=== PATIENT | female | born 1940 | race Caucasian/White ===

== ENCOUNTER 2017-01-02 14:15 | Inpatient (IN) | payer MEDICARE, MEDICAID ==
[~2017-01-02] VITALS: Ht 152.4 cm; Wt 71.7 kg
[~2017-01-02 14:15] MED LIST: AMLO10TA80 PO; LOSA-20 PO; MULT-348 PO; OMEG1CAP17 PO; PRAV80TA21 PO; THEO200T17 PO; VALS1TAB30 PO
[2017-01-02] MEDS ORDERED: ASPIRIN 81MG TABLET PO STA (15:10)
[2017-01-02] MEDS ORDERED: LEVOFLOXACIN 750MG PREMIX 150 ML IV ONE (15:15)
[2017-01-02] MEDS ORDERED: SODIUM CHLORIDE 0.9% 1000ML BAG (SEPSIS BOLUS) IV ONE (15:15)
[2017-01-02 15:46] LABS: BASOPHILS % 1.1 % (0.0-2.0); EOSINOPHILS % 6.7 % (0.0-5.0); HEMATOCRIT. 38.6 % (36.0-48.0); HEMOGLOBIN. 12.5 g/dL (12.0-16.0); LYMPHOCYTES % 39.1 % (20.0-50.0); MEAN CORPUSCULAR VOLUME 86.4 fL (81.0-99.0); MEAN PLATELET VOLUME 8.7 fl (7.4-10.4); MONOCYTES % 13.1 % (2.0-8.0); PLATELET 360 x1000/uL (130-400); RED BLOOD CELL COUNT 4.46 mill/uL (4.2-5.4); RED CELL DISTRIBUTION WIDTH 17.4 % (11.6-14.6)
[2017-01-02 15:47] LABS: CHLORIDE 113 mEq/L (98-107); PARTIAL THROMBOPLASTIN TIME 27.6 sec (23.4-31.0); PROTHROMBIN TIME 10.7 sec (9.4-11.6)
[2017-01-02 15:53] LABS: CARBON DIOXIDE 21 mEq/L (21-32)
[2017-01-02 15:55] LABS: TROPONIN I < 0.02 ng/mL (0.00-0.04)
[2017-01-02 16:33] LABS: CLARITY URINE CLEAR (CLEAR); COLOR URINE YELLOW (YELLOW); GLUCOSE URINE NEGATIVE (NEGATIVE); KETONES URINE NEGATIVE (NEGATIVE); LEUKOCYTE ESTERASE URINE NEGATIVE (NEGATIVE); NITRITE URINE NEGATIVE (NEGATIVE); OCCULT BLOOD URINE NEGATIVE (NEGATIVE); PROTEIN URINE TRACE (NEGATIVE); SPECIFIC GRAVITY URINE 1.013 (1.005-1.030); UROBILINOGEN URINE 0.2 E.U./dL (0.2-1.0)
[2017-01-02 19:44] VITALS: BP 148/65
[2017-01-02 20:00] VITALS: BP 148/65
[2017-01-02] MEDS ORDERED: MAGNESIUM/ALUMINUM HYDROXIDE/SIMETHICONE 30ML UDC PO PRN (20:00)
[2017-01-02] MEDS ORDERED: CLONIDINE 0.1MG TABLET PO PRN (20:00)
[2017-01-02] MEDS ORDERED: ENOXAPARIN 40MG/0.4ML SYR SUBCUT SCH (20:00)
[2017-01-02] MEDS ORDERED: SODIUM CHLORIDE 0.9% 1,000 ML IV SCH (20:30)
[2017-01-02] MEDS: ENOXAPARIN 30MG/0.3ML SYR SUBCUT SCH (21:39)
[2017-01-02] MEDS: IPRATROPIUM/ALBUTEROL 0.5-3(2.5)MG/3ML NEB INH PRN (22:04)
[2017-01-02] MEDS: CEFTRIAXONE 1 G PREMIX 50 ML IV SCH (23:04)
[2017-01-03] VITALS: BP 132/43
[2017-01-03 00:52] LABS: CARBON DIOXIDE 15 mEq/L (21-32); CHLORIDE 124 mEq/L (98-107); CREATINE KINASE 73 IU/L (26-192); CREATINE KINASE MB FRACTION 0.8 ng/mL (0.5-3.6); TROPONIN I < 0.02 ng/mL (0.00-0.04)
[2017-01-03] MEDS: IPRATROPIUM/ALBUTEROL 0.5-3(2.5)MG/3ML NEB INH PRN ×3 (00:55→07:33)
[2017-01-03 02:17] LABS: CLARITY URINE CLEAR (CLEAR); COLOR URINE YELLOW (YELLOW); GLUCOSE URINE NEGATIVE (NEGATIVE); KETONES URINE NEGATIVE (NEGATIVE); LEUKOCYTE ESTERASE URINE TRACE (NEGATIVE); NITRITE URINE NEGATIVE (NEGATIVE); OCCULT BLOOD URINE NEGATIVE (NEGATIVE); PROTEIN URINE TRACE (NEGATIVE); SPECIFIC GRAVITY URINE 1.012 (1.005-1.030); UROBILINOGEN URINE 0.2 E.U./dL (0.2-1.0)
[2017-01-03 02:38] LABS: *AMPHETAMINES SCREEN URINE NEGATIVE (NEGATIVE); *BARBITURATES SCREEN URINE NEGATIVE (NEGATIVE); *BENZODIAZEPINES SCREEN URINE NEGATIVE (NEGATIVE); *COCAINE SCREEN URINE NEGATIVE (NEGATIVE); CANNABINOID URINE SCREEN NEGATIVE (NEGATIVE); METHADONE URINE SCREEN NEGATIVE (NEGATIVE); OPIATES URINE SCREEN NEGATIVE (NEGATIVE); PHENCYCLIDINE URINE SCREEN NEGATIVE (NEGATIVE)
[2017-01-03 04:00] VITALS: BP 130/67
[2017-01-03] MEDS ORDERED: LORAZEPAM 2MG/ML CPJ IV PRN (06:15)
[2017-01-03] MEDS ORDERED: POTASSIUM CHLORIDE 20MEQ TABLET SR PO SCH ×2 (06:30→10:30)
[2017-01-03 06:39] LABS: BASOPHILS % 0.8 % (0.0-2.0); EOSINOPHILS % 5.1 % (0.0-5.0); HEMATOCRIT. 37.5 % (36.0-48.0); HEMOGLOBIN. 12.5 g/dL (12.0-16.0); LYMPHOCYTES % 40.5 % (20.0-50.0); MEAN CORPUSCULAR HEMOGLOBIN 28.8 pg (28.0-32.0); MEAN CORPUSCULAR VOLUME 86.3 fL (81.0-99.0); MEAN PLATELET VOLUME 8.6 fl (7.4-10.4); NEUTROPHILS % 40.6 % (40.0-76.0); PLATELET 362 x1000/uL (130-400); RED BLOOD CELL COUNT 4.35 mill/uL (4.2-5.4); RED CELL DISTRIBUTION WIDTH 17.7 % (11.6-14.6)
[2017-01-03 07:39] LABS: CREATINE KINASE 112 IU/L (26-192); HDL CHOLESTEROL 27 mg/dL (40-59); LDL CHOLESTEROL 135 mg/dL (5-100)
[2017-01-03 07:46] LABS: CREATINE KINASE MB FRACTION 0.9 ng/mL (0.5-3.6); TROPONIN I < 0.02 ng/mL (0.00-0.04)
[2017-01-03 08:00] VITALS: BP 131/58
[2017-01-03 12:00] VITALS: BP 137/65
[2017-01-03] MEDS ORDERED: IPRATROPIUM/ALBUTEROL 0.5-3(2.5)MG/3ML NEB HHN PRN (13:00)
[2017-01-03] MEDS: IPRATROPIUM/ALBUTEROL 0.5-3(2.5)MG/3ML NEB HHN SCH ×2 (15:15→20:18)
[2017-01-03 16:00] VITALS: BP 145/65
[2017-01-03 20:00] VITALS: BP 115/67
[2017-01-03] MEDS: ENOXAPARIN 30MG/0.3ML SYR SUBCUT SCH (20:30)
[2017-01-03] MEDS ORDERED: CALCIUM CHLORIDE 1,000 MG in DEXT 5% WATER 90 ML IV NR (21:30)
[2017-01-04] VITALS: BP 146/68
[2017-01-04] MEDS: IPRATROPIUM/ALBUTEROL 0.5-3(2.5)MG/3ML NEB HHN SCH ×6 (00:19→21:05)
[2017-01-04] MEDS: CEFTRIAXONE 1 G PREMIX 50 ML IV SCH ×2 (00:57→22:25)
[2017-01-04] MEDS: ACETAMINOPHEN 325MG TABLET PO PRN ×2 (01:32→21:23)
[2017-01-04 04:00] VITALS: BP 130/62
[2017-01-04 08:00] VITALS: BP 115/50
[2017-01-04 12:25] VITALS: BP 112/61
[2017-01-04] MEDS ORDERED: LIDOCAINE HCL 1% 20ML VIAL (Pyxis) INJ ONE (12:30)
[2017-01-04] MEDS ORDERED: SODIUM BICARBONATE 4% (2.4MEQ) 5ML VIAL IV ONE (12:31)
[2017-01-04] MEDS: HYDROCODONE/ACETAMINOPHEN 5/325MG TABLET PO PRN (14:01)
[2017-01-04] MEDS: ONDANSETRON HCL 4MG/2ML VIAL IV PRN (15:37)
[2017-01-04 16:02] VITALS: BP 101/47
[2017-01-04 20:00] VITALS: BP 122/58
[2017-01-05] VITALS: BP 125/61
[2017-01-05] MEDS: IPRATROPIUM/ALBUTEROL 0.5-3(2.5)MG/3ML NEB HHN SCH ×7 (00:20→20:02)
[2017-01-05 04:00] VITALS: BP 108/51
[2017-01-05] MEDS: ACETAMINOPHEN 325MG TABLET PO PRN (04:45)
[2017-01-05 07:35] VITALS: BP 109/40
[2017-01-05 11:55] VITALS: BP 130/62
[2017-01-05] MEDS: HYDROCODONE/ACETAMINOPHEN 5/325MG TABLET PO PRN ×2 (14:01→20:25)
[2017-01-05 16:07] VITALS: BP 120/49
[2017-01-05 20:00] VITALS: BP 144/57
[2017-01-05] MEDS: ONDANSETRON HCL 4MG/2ML VIAL IV PRN (20:25)
[2017-01-05] MEDS: CEFTRIAXONE 1 G PREMIX 50 ML IV SCH (23:25)
[2017-01-06] VITALS: BP 159/53
[2017-01-06] MEDS: IPRATROPIUM/ALBUTEROL 0.5-3(2.5)MG/3ML NEB HHN SCH ×7 (00:18→23:39)
[2017-01-06 04:00] VITALS: BP 132/59
[2017-01-06] MEDS: HYDROCODONE/ACETAMINOPHEN 5/325MG TABLET PO PRN ×2 (07:17→10:39)
[2017-01-06 08:00] VITALS: BP 128/59
[2017-01-06] MEDS: ACETAMINOPHEN 325MG TABLET PO PRN (11:40)
[2017-01-06 12:00] VITALS: BP 126/57
[2017-01-06 15:59] VITALS: BP 114/52
[2017-01-06 20:00] VITALS: BP 120/52
[2017-01-06] MEDS: CEFTRIAXONE 1 G PREMIX 50 ML IV SCH (23:44)
[2017-01-07] VITALS: BP 116/56
[2017-01-07] MEDS: HYDROCODONE/ACETAMINOPHEN 5/325MG TABLET PO PRN ×2 (03:16→17:03)
[2017-01-07] MEDS: IPRATROPIUM/ALBUTEROL 0.5-3(2.5)MG/3ML NEB HHN SCH ×5 (03:58→20:28)
[2017-01-07 04:00] VITALS: BP 110/52
[2017-01-07 08:00] VITALS: BP 107/53
[2017-01-07 09:13] LABS: EOSINOPHILS % 6.7 % (0.0-5.0); HEMATOCRIT. 35.4 % (36.0-48.0); HEMOGLOBIN. 11.5 g/dL (12.0-16.0); LYMPHOCYTES % 23.5 % (20.0-50.0); MEAN CORPUSCULAR HEMOGLOBIN 28.5 pg (28.0-32.0); MEAN CORPUSCULAR VOLUME 87.6 fL (81.0-99.0); MONOCYTES % 12.9 % (2.0-8.0); NEUTROPHILS % 55.9 % (40.0-76.0); PLATELET 315 x1000/uL (130-400); RED BLOOD CELL COUNT 4.04 mill/uL (4.2-5.4); RED CELL DISTRIBUTION WIDTH 18.2 % (11.6-14.6)
[2017-01-07 09:37] LABS: INR 1.1; PARTIAL THROMBOPLASTIN TIME 36.2 sec (23.4-31.0); PROTHROMBIN TIME 11.3 sec (9.4-11.6)
[2017-01-07 12:00] VITALS: BP 100/60
[2017-01-07 16:10] VITALS: BP 103/41
[2017-01-07 20:30] VITALS: BP 128/59
[2017-01-07] MEDS: CEFTRIAXONE 1 G PREMIX 50 ML IV SCH (23:14)
[2017-01-08] VITALS (8 sets, daily range): BP systolic 115–132; BP diastolic 44–60
[2017-01-08] MEDS: IPRATROPIUM/ALBUTEROL 0.5-3(2.5)MG/3ML NEB HHN SCH ×6 (00:56→21:12)
[2017-01-08] MEDS: HYDROCODONE/ACETAMINOPHEN 5/325MG TABLET PO PRN (22:32)
[2017-01-08] MEDS: CEFTRIAXONE 1 G PREMIX 50 ML IV SCH (22:43)
[2017-01-09] VITALS (7 sets, daily range): BP systolic 111–181; BP diastolic 45–95
[2017-01-09] MEDS: IPRATROPIUM/ALBUTEROL 0.5-3(2.5)MG/3ML NEB HHN SCH ×5 (01:32→16:07)
[2017-01-09] MEDS ORDERED: HETASTARCH/NORMAL SALINE 500 ML IV SCH (19:45)
[2017-01-09] MEDS ORDERED: BUPIVACAINE/EPINEPH/PF 0.25%/0.0005 10ML INJ SCH (19:45)
[2017-01-09] MEDS ORDERED: BACITRACIN 50,000 UNITS/VIAL IM SCH (19:45)
[2017-01-09] MEDS ORDERED: FENTANYL CITRATE/PF 50MCG/ML 2ML VIAL ONE (20:06)
[2017-01-09] MEDS ORDERED: MIDAZOLAM HCL 2 MG/2 ML VIAL ONE (20:07)
[2017-01-09] MEDS ORDERED: HYDROMORPHONE HCL/PF 2MG/ML CPJ IV PRN (20:30)
[2017-01-09] MEDS ORDERED: MEPERIDINE HCL/PF 25MG/ML CPJ IV PRN (20:30)
[2017-01-09] MEDS ORDERED: LABETALOL 5MG/ML SYR 20 MG/4 ML SYRINGE IV PRN (20:30)
[2017-01-09] MEDS ORDERED: ONDANSETRON HCL 4MG/2ML VIAL IV PRN (20:30)
[2017-01-09] MEDS ORDERED: SODIUM CHLORIDE 0.9% 10ML VIAL ONE (20:51)
[2017-01-09] MEDS ORDERED: CEFAZOLIN SODIUM 1000MG/VIAL ONE (20:51)
[2017-01-09] MEDS ORDERED: PROPOFOL 200MG/20ML VIAL IV ONE (20:51)
[2017-01-09] MEDS ORDERED: LIDOCAINE HCL 1% 20ML VIAL (Pyxis) INJ ONE (20:51)
[2017-01-09] MEDS ORDERED: NEOSTIGMINE METHYLSULFATE 1MG/ML 10 ML VIAL ONE (20:52)
[2017-01-09] MEDS ORDERED: GLYCOPYRROLATE 0.2 MG/ML 2ML VIAL ONE ×2 (20:52→21:04)
[2017-01-09] MEDS ORDERED: DEXAMETHASONE 4MG/ML 1ML VIAL ONE (20:52)
[2017-01-09] MEDS ORDERED: ROCURONIUM BROMIDE 10MG/ML VIAL 5ML IV ONE (20:52)
[2017-01-09] MEDS ORDERED: SUCCINYLCHOLINE CHLORIDE 200MG/10ML VIAL IV ONE (20:52)
[2017-01-09] MEDS ORDERED: ONDANSETRON HCL 4MG/2ML VIAL ONE (21:04)
[2017-01-09] MEDS ORDERED: SODIUM CHLORIDE 0.9% INJ 3ML FLUSH IVF SCH (22:00)
[2017-01-09 22:08] LABS: BG BASE EXCESS -11.3 mmol/L (-2.0-2.0); BG CARBOXYHEMOGLOBIN 0.2 % (0.5-1.5); BG DEOXYHEMOGLOBIN 3.9 % (0.0-5.0); BG FRACTION INSPIRED OXYGEN 35; BG HCO3 ACT 14.8 mmol/L (22.0-26.0); BG METHEMOGLOBIN 0.3 % (0.0-1.5); BG OXYGEN SATURATION 96.1 % (92.0-98.5); BG OXYHEMOGLOBIN 95.6 % (94.0-97.0); BG PCO2 34.4 mmHg (35.0-45.0); BG PH 7.253 (7.350-7.450); BG SAMPLE SITE RIGHT BRACHIAL; BG TIDAL VOLUME(mL) 500 mL; BG TOTAL HEMOGLOBIN 12.8 g/dL (12.0-18.0); BG VENT MODE VENT - A/C; BG VENT RATE 12 set
[2017-01-09] MEDS: CEFTRIAXONE 1 G PREMIX 50 ML IV SCH (23:00)
[2017-01-10] VITALS (40 sets, daily range): BP systolic 97–169; BP diastolic 42–83
[2017-01-10] MEDS: IPRATROPIUM/ALBUTEROL 0.5-3(2.5)MG/3ML NEB HHN SCH ×7 (00:04→23:58)
[2017-01-10 00:20] LABS: BG BASE EXCESS -11.5 mmol/L (-2.0-2.0); BG CARBOXYHEMOGLOBIN 0.4 % (0.5-1.5); BG DEOXYHEMOGLOBIN 5.1 % (0.0-5.0); BG FRACTION INSPIRED OXYGEN 35; BG HCO3 ACT 15.5 mmol/L (22.0-26.0); BG METHEMOGLOBIN 0.2 % (0.0-1.5); BG OXYGEN SATURATION 94.9 % (92.0-98.5); BG OXYHEMOGLOBIN 94.3 % (94.0-97.0); BG PCO2 38.8 mmHg (35.0-45.0); BG PH 7.219 (7.350-7.450); BG PO2 82.8 mmHg (75.0-100.0); BG PRESSURE SUPPORT 12; BG SAMPLE SITE RIGHT BRACHIAL; BG TOTAL HEMOGLOBIN 13.3 g/dL (12.0-18.0); BG VENT MODE VENT - CPAP
[2017-01-10] MEDS ORDERED: SODIUM BICARBONATE 8.4% 1 MEQ/ML 50ML SYR IV NR (00:45)
[2017-01-10] MEDS ORDERED: SODIUM BICARBONATE 5MEQ SYR 50 MEQ in DEXT 5%/0.45% NACL 1000ML 1,000 ML IV SCH (01:00)
[2017-01-10 06:13] LABS: HEMATOCRIT. 37.5 % (36.0-48.0); HEMOGLOBIN. 12.2 g/dL (12.0-16.0); MEAN CORPUSCULAR HEMOGLOBIN 28.7 pg (28.0-32.0); PLATELET 409 x1000/uL (130-400); RED BLOOD CELL COUNT 4.26 mill/uL (4.2-5.4); RED CELL DISTRIBUTION WIDTH 17.6 % (11.6-14.6)
[2017-01-10 07:57] LABS: BG BASE EXCESS -6.6 mmol/L (-2.0-2.0); BG CARBOXYHEMOGLOBIN 0.3 % (0.5-1.5); BG DEOXYHEMOGLOBIN 3.4 % (0.0-5.0); BG FRACTION INSPIRED OXYGEN 35; BG HCO3 ACT 17.5 mmol/L (22.0-26.0); BG METHEMOGLOBIN 0.2 % (0.0-1.5); BG OXYGEN SATURATION 96.6 % (92.0-98.5); BG OXYHEMOGLOBIN 96.1 % (94.0-97.0); BG PCO2 30.8 mmHg (35.0-45.0); BG PH 7.372 (7.350-7.450); BG PO2 84.3 mmHg (75.0-100.0); BG SAMPLE SITE RIGHT BRACHIAL; BG TIDAL VOLUME(mL) 500 mL; BG VENT MODE VENT - A/C; BG VENT RATE 12 set
[2017-01-10 09:57] LABS: BG BASE EXCESS -6.7 mmol/L (-2.0-2.0); BG BILEVEL POS AIRWAY PRESSURE 16/4; BG CARBOXYHEMOGLOBIN 0.3 % (0.5-1.5); BG DEOXYHEMOGLOBIN 3.9 % (0.0-5.0); BG FRACTION INSPIRED OXYGEN 35; BG HCO3 ACT 16.6 mmol/L (22.0-26.0); BG METHEMOGLOBIN 0.3 % (0.0-1.5); BG OXYGEN SATURATION 96.1 % (92.0-98.5); BG OXYHEMOGLOBIN 95.5 % (94.0-97.0); BG PCO2 27.6 mmHg (35.0-45.0); BG PH 7.397 (7.350-7.450); BG PRESSURE SUPPORT 8; BG SAMPLE SITE RIGHT BRACHIAL; BG TOTAL HEMOGLOBIN 13.4 g/dL (12.0-18.0); BG VENT MODE VENT - CPAP
[2017-01-10] MEDS: SODIUM BICARBONATE 50 MEQ in DEXT 5%/0.45% NACL 1000ML 1,000 ML IV SCH ×2 (12:49→23:10)
[2017-01-10 12:52] LABS: PLATELET ESTIMATE SLIGHTLY INCREASED
[2017-01-10 13:09] LABS: BG BASE EXCESS -4.2 mmol/L (-2.0-2.0); BG CARBOXYHEMOGLOBIN 0.2 % (0.5-1.5); BG DEOXYHEMOGLOBIN 3.3 % (0.0-5.0); BG FRACTION INSPIRED OXYGEN 40; BG HCO3 ACT 18.8 mmol/L (22.0-26.0); BG METHEMOGLOBIN 0.3 % (0.0-1.5); BG OXYGEN SATURATION 96.7 % (92.0-98.5); BG OXYHEMOGLOBIN 96.2 % (94.0-97.0); BG PCO2 28.4 mmHg (35.0-45.0); BG PH 7.438 (7.350-7.450); BG PO2 83.1 mmHg (75.0-100.0); BG SAMPLE SITE RIGHT BRACHIAL; BG TOTAL HEMOGLOBIN 12.7 g/dL (12.0-18.0); BG VENT MODE MASK - AEROSOL
[2017-01-10] MEDS: HYDROCODONE/ACETAMINOPHEN 5/325MG TABLET PO PRN (21:20)
[2017-01-11] VITALS (22 sets, daily range): BP systolic 102–161; BP diastolic 42–132
[2017-01-11] MEDS: IPRATROPIUM/ALBUTEROL 0.5-3(2.5)MG/3ML NEB HHN SCH ×5 (04:27→20:18)
[2017-01-11] MEDS: SODIUM BICARBONATE 50 MEQ in DEXT 5%/0.45% NACL 1000ML 1,000 ML IV SCH (09:38)
[2017-01-11] MEDS: HYDROCODONE/ACETAMINOPHEN 5/325MG TABLET PO PRN (10:55)
[2017-01-11 11:33] LABS: BASOPHILS % 0.2 % (0.0-2.0); HEMATOCRIT. 32.1 % (36.0-48.0); HEMOGLOBIN. 10.6 g/dL (12.0-16.0); LYMPHOCYTES % 7.5 % (20.0-50.0); MEAN CORPUSCULAR HEMOGLOBIN 28.3 pg (28.0-32.0); MEAN CORPUSCULAR VOLUME 85.7 fL (81.0-99.0); MEAN PLATELET VOLUME 8.5 fl (7.4-10.4); MONOCYTES % 10.2 % (2.0-8.0); NEUTROPHILS % 82.1 % (40.0-76.0); PLATELET 387 x1000/uL (130-400); RED BLOOD CELL COUNT 3.75 mill/uL (4.2-5.4); RED CELL DISTRIBUTION WIDTH 17.6 % (11.6-14.6)
[2017-01-12] VITALS (14 sets, daily range): BP systolic 120–156; BP diastolic 59–82
[2017-01-12] MEDS: IPRATROPIUM/ALBUTEROL 0.5-3(2.5)MG/3ML NEB HHN SCH ×6 (00:12→21:39)
[2017-01-12 07:08] LABS: BASOPHILS % 0.2 % (0.0-2.0); MEAN CORPUSCULAR HEMOGLOBIN 28.5 pg (28.0-32.0); MEAN CORPUSCULAR VOLUME 85.4 fL (81.0-99.0); MEAN PLATELET VOLUME 8.5 fl (7.4-10.4); NEUTROPHILS % 74.8 % (40.0-76.0); PLATELET 402 x1000/uL (130-400); RED BLOOD CELL COUNT 3.52 mill/uL (4.2-5.4); RED CELL DISTRIBUTION WIDTH 17.7 % (11.6-14.6)
[2017-01-12] MEDS: ONDANSETRON HCL 4MG/2ML VIAL IV PRN ×2 (15:18→21:26)
[2017-01-12 16:05] LABS: BG BASE EXCESS 3.1 mmol/L (-2.0-2.0); BG CARBOXYHEMOGLOBIN 0.3 % (0.5-1.5); BG DEOXYHEMOGLOBIN 10.6 % (0.0-5.0); BG FRACTION INSPIRED OXYGEN 21; BG HCO3 ACT 26.1 mmol/L (22.0-26.0); BG OXYGEN SATURATION 89.4 % (92.0-98.5); BG OXYHEMOGLOBIN 89.1 % (94.0-97.0); BG PCO2 34.3 mmHg (35.0-45.0); BG PO2 53.3 mmHg (75.0-100.0); BG SAMPLE SITE RIGHT RADIAL; BG TOTAL HEMOGLOBIN 11.3 g/dL (12.0-18.0); BG VENT MODE ROOM AIR
[2017-01-13] VITALS: BP 138/73
[2017-01-13] MEDS: IPRATROPIUM/ALBUTEROL 0.5-3(2.5)MG/3ML NEB HHN SCH ×5 (01:11→15:59)
[2017-01-13 10:06] LABS: BASOPHILS % 0.4 % (0.0-2.0); HEMOGLOBIN. 12.6 g/dL (12.0-16.0); LYMPHOCYTES % 20.5 % (20.0-50.0); MEAN CORPUSCULAR HEMOGLOBIN 28.8 pg (28.0-32.0); MEAN CORPUSCULAR VOLUME 86.6 fL (81.0-99.0); MEAN PLATELET VOLUME 8.1 fl (7.4-10.4); MONOCYTES % 9.8 % (2.0-8.0); NEUTROPHILS % 67.3 % (40.0-76.0); PLATELET 459 x1000/uL (130-400); RED BLOOD CELL COUNT 4.39 mill/uL (4.2-5.4); RED CELL DISTRIBUTION WIDTH 18.1 % (11.6-14.6)
[2017-01-13] MEDS: ACETAMINOPHEN 325MG TABLET PO PRN (12:10)
[2017-01-13] MEDS ORDERED: BISACODYL 10MG SUPP PR NR (14:00)
[2017-01-13 16:48] VITALS: BP 139/73
== END 2017-01-13 21:46 | disposition home or self-care (01) | DRG 163 ==
LOC: ER 14:15 → 8WST 15:14 → EDBEDREQ 17:08 → ENRESERV 17:38 → CVICU 01-09 21:23 → 5EST 01-11 17:10
PROVIDERS: ADMIT Internal Medicine; ATTEND Internal Medicine
PROC: 5A1935Z Respiratory Ventilation, Less than 24 Consecutive Hours (ICD-10-PCS; 2017-01-09)
PROC: 0BH17EZ Insertion of Endotracheal Airway into Trachea, Via Natural or Artificial Opening (ICD-10-PCS; 2017-01-09)
PROC: 0BNL4ZZ Release Left Lung, Percutaneous Endoscopic Approach (ICD-10-PCS; principal; 2017-01-10)
PROC: 0W9B30Z Drainage of Left Pleural Cavity with Drainage Device, Percutaneous Approach (ICD-10-PCS; 2017-01-10)
PROC: 3E0L4GC Introduction of Other Therapeutic Substance into Pleural Cavity, Percutaneous Endoscopic Approach (ICD-10-PCS; 2017-01-10)
PROC: 0JB60ZZ Excision of Chest Subcutaneous Tissue and Fascia, Open Approach (ICD-10-PCS; 2017-01-11)
PROC: 3E0T3BZ Introduction of Anesthetic Agent into Peripheral Nerves and Plexi, Percutaneous Approach (ICD-10-PCS; 2017-01-11)
DX: J96.01 Acute respiratory failure with hypoxia (principal); J18.9 Pneumonia, unspecified organism; E87.0 Hyperosmolality and hypernatremia; J91.0 Malignant pleural effusion; C79.51 Secondary malignant neoplasm of bone; E83.51 Hypocalcemia; J93.9 Pneumothorax, unspecified; C50.912 Malignant neoplasm of unspecified site of left female breast; I10 Essential (primary) hypertension; E87.6 Hypokalemia; E78.00 Pure hypercholesterolemia, unspecified; R63.4 Abnormal weight loss; E78.5 Hyperlipidemia, unspecified; H26.9 Unspecified cataract; R13.10 Dysphagia, unspecified; Z85.3 Personal history of malignant neoplasm of breast; Z90.12 Acquired absence of left breast and nipple; Z99.81 Dependence on supplemental oxygen; Z92.21 Personal history of antineoplastic chemotherapy; Z79.899 Other long term (current) drug therapy; Z68.30 Body mass index [BMI] 30.0-30.9, adult
CPT/HCPCS: 32555; 36415; 36600; 71010; 71250; 74000; 76942; 80048; 80053; 80061; 80305; 81001; 82330; 82375; 82550; 82553; 82805; 83605; 83735; 83880; 83986; 84132; 84443; 84484; 85007; 85025; 85027; 85610; 85730; 87040; 87070; 87086; 87205; 88305; 88312; 89050; 93005; 93306; 93970; 93971; 94002; 94003; 94640; 96365; 96366; 97110; 97162; 97166; 97530; 97535; 99285; A4216; A6261; A7042; C1893; J0171; J0330; J0690; J0696; J1100; J1170; J1650; J1956; J2060; J2250; J2405; J2704; J2710; J3010; J3490; J7030; J7060; J7620